=== PATIENT | male | born 1985 | race Caucasian/White ===

== ENCOUNTER 2017-05-08 03:04 | Emergency (ER) | payer BC ==
[2017-05-08] MEDS: NS 1,000 ML IV (04:15)
[2017-05-08] MEDS: LORazepam 2 MG/ML VIAL (J2060) IV (04:15)
[2017-05-08] MEDS ORDERED: LORazepam 2 MG/ML VIAL (J2060) As Ordered (04:21)
[2017-05-08 05:18] LABS: ANION GAP 11 MEQ/L (8-16); BLOOD UREA NITROGEN 7 MG/DL (7-18); CARBON DIOXIDE LEVEL 25 MEQ/L (21-32); CHLORIDE LEVEL 103 MEQ/L (98-107); CREATININE FOR GFR 1.03 MG/DL (0.70-1.30); ETHYL ALCOHOL (ETHANOL) 0.003 % (0.000-0.010); GLOMERULAR FILTRATION RATE > 60.0 (>60); GLUCOSE, FASTING 96 MG/DL (70-100); SODIUM LEVEL 139 MEQ/L (136-145)
[2017-05-08 05:22] LABS: BASO # 0.1 10^3/uL (0.0-0.2); BASO % 1.1 % (0.0-1.0); EOS # 0.1 10^3/uL (0.0-0.50); EOS % 2.1 % (0.0-3.0); HEMATOCRIT 39.8 % (42.0-52.0); HEMOGLOBIN 14.1 g/dl (14.0-18.0); IMMATURE GRANULOCYTE % 0.3 % (0-0); LYMPH # 0.8 10^3/uL (1.5-4.5); LYMPH % 12.9 % (24.0-44.0); MEAN CORPUSCULAR HEMOGLOBIN 33.1 pg (27.0-33.0); MEAN CORPUSCULAR HGB CONC 35.4 g/dl (32.0-36.5); MEAN CORPUSCULAR VOLUME 93.4 fl (80.0-96.0); MONO # 0.7 10^3/uL (0.0-0.8); MONO % 10.7 % (0.0-5.0); NEUTROPHILS # 4.8 10^3/uL (1.8-7.7); NEUTROPHILS % 72.9 % (36.0-66.0); PLATELET COUNT, AUTOMATED 180 10^3/uL (150-450); RED BLOOD COUNT 4.26 10^6/uL (4.30-6.10); RED CELL DISTRIBUTION WIDTH 12.1 % (11.5-14.5); WHITE BLOOD COUNT 6.5 10^3/uL (4.0-10.0)
[2017-05-08 05:23] LABS: VENOUS BASE EXCESS 0.3 (-2.0-2.0); VENOUS HCO3 24.4 MEQ/L (23.0-27.0); VENOUS O2 SATURATION 98.1 % (60.0-80.0); VENOUS PARTIAL PRESSURE CO2 37.6 mmHg (38.0-50.0); VENOUS PARTIAL PRESSURE O2 106.1 mmHg (30.0-50.0); VENOUS STANDARD HCO3 24.8 MEQ/L; VENOUS TOTAL CO2 25.6 MEQ/L (24.0-28.0)
[2017-05-08] MEDS: POTASSIUM CHLORIDE 10 MEQ SR TABLET PO (06:21)
== END 2017-05-08 06:25 | disposition home or self-care (01) ==
LOC: M ED 03:04
DX: F41.0 Panic disorder [episodic paroxysmal anxiety] (principal)
CPT/HCPCS: J2060

== ENCOUNTER 2018-08-05 12:16 | Inpatient (IN) | payer BC ==
[~2018-08-05] VITALS: Ht 185.4 cm; Wt 70.1 kg
[~2018-08-05 12:16] MED LIST: EXCETAB81 PO
[2018-08-05 14:04] LABS: HEMATOCRIT 43.6 % (42.0-52.0); HEMOGLOBIN 15.4 g/dl (13.5-17.5); MEAN CORPUSCULAR HEMOGLOBIN 34.7 pg (27.0-33.0); MEAN CORPUSCULAR HGB CONC 35.3 g/dl (32.0-36.5); MEAN CORPUSCULAR VOLUME 98.2 fl (80.0-96.0); PLATELET COUNT, AUTOMATED 227 10^3/uL (150-450); RED BLOOD COUNT 4.44 10^6/uL (4.30-6.10); WHITE BLOOD COUNT 6.9 10^3/uL (4.0-10.0)
[2018-08-05 14:18] LABS: AMPHETAMINES LEVEL URINE NEGATIVE (NEGATIVE); BARBITURATES URINE NEGATIVE (NEGATIVE); BENZODIAZEPINES URINE NEGATIVE (NEGATIVE); CANNABINOIDS URINE NEGATIVE (NEGATIVE); COCAINE METABOLITE URINE NEGATIVE (NEGATIVE); METHADONE URINE NEGATIVE (NEGATIVE); OPIATES URINE NEGATIVE (NEGATIVE); PHENCYCLIDINE URINE NEGATIVE (NEGATIVE)
[2018-08-05 14:49] LABS: ACETAMINOPHEN LEVEL < 2.0 UG/ML (10.0-30.0); ALBUMIN 2.8 GM/DL (3.2-5.2); ALT/SGPT 99 U/L (12-78); BILIRUBIN,DIRECT 0.2 MG/DL (0.0-0.2); BILIRUBIN,TOTAL 0.5 MG/DL (0.2-1.0); BLOOD UREA NITROGEN 3 MG/DL (7-18); CALCIUM LEVEL 7.5 MG/DL (8.5-10.1); CARBON DIOXIDE LEVEL 28 MEQ/L (21-32); CHLORIDE LEVEL 106 MEQ/L (98-107); CREATININE FOR GFR 0.67 MG/DL (0.70-1.30); ETHYL ALCOHOL (ETHANOL) 0.324 % (0.000-0.010); GLOMERULAR FILTRATION RATE > 60.0 (>60); GLUCOSE, FASTING 78 MG/DL (70-100); POTASSIUM SERUM 3.5 MEQ/L (3.5-5.1); SALICYLATE LEVEL < 1.7 MG/DL (5.0-30.0); SODIUM LEVEL 142 MEQ/L (136-145); TOTAL PROTEIN 6.2 GM/DL (6.4-8.2)
[2018-08-06] MEDS ORDERED: ACETAMINOPHEN TAB 650MG DOSE (2X325MG) PO PRN (13:45)
[2018-08-06] MEDS ORDERED: LORazepam 2 MG TAB PO PRN (13:45)
[2018-08-06] MEDS ORDERED: MAALOX 30 ML SUSP *UDC PO PRN (13:45)
[2018-08-06] MEDS ORDERED: MOM 30ML SUSPENSION UDC PO PRN (13:45)
[2018-08-06 14:56] VITALS: BP_SYST 127; BP_SYST 129; BP_DIAS 88; BP_DIAS 94
[2018-08-06] MEDS: FOLIC ACID 1 MG TAB PO SCH (15:16)
[2018-08-06] MEDS: MULTIVITAMINS/MINERALS THERAP 1 TAB PO SCH (15:16)
[2018-08-06] MEDS: THIAMINE 100 MG TAB PO SCH ×2 (15:16→21:37)
[2018-08-06 18:00] VITALS: BP 134/84
--- NOTE | 2018-08-06 19:06 | HPEPDOC ---
General Date of Admission August 06, 2018 at 13:35 Chief Complaint The patient is a 33-year-old male admitted with a reason for visit of Unspecified Depressive Disorder Etoh Disorder. History of Present Illness Patient is a 33-year-old male, without any medical history, admitted on account of severe depression with alcohol abuse. Patient states his problem has been building up for 3 years . His drinking has become progressively worse due to depression. On admit his blood alcohol level was 0.324. .. Liver enzymes were also elevated with AST 167 AST 99. He is admitted for further evaluation and management of severe depression with heavy alcohol abuse Home Medications No Active Prescriptions or Reported Meds Allergies Coded Allergies: No Known Allergies (Unverified , 05/08/17) Past Medical History Medical History Denies Surgical History Right Scaphoid repair Family History Father with alcohol abuse Social History Smokes one pack per week, drinks about token to be a day, denies polysubstance abuse A-FIB/CHADSVASC A-FIB History Current/History of A-Fib/PAF?: No Current Oral Anticoagulant The: No Review of Systems Other systems A 10 point pertinent ROS was completed, negative except as stated in the HPI Physical Examination Other physical findings GENERAL: NAD SKIN : Warm, dry intact HEENT: Atraumatic, normocephalic, PERRL, moist mucous membrane CV: Regular rate and rhythm, S1S2, no JVD, no edema, distal pulses + and palpable RESP: CTAB, no accessory muscle use noted ABDOMEN: BS+, non distended non tender MS: no joint deformities NEURO: Alert and oriented x 3, CN2-12 grossly intact PSYCH: no anxiety or agitation, appropriate mood and affect. Vital Signs Vital Signs Date Time Temp Pulse Resp B/P (MAP) Pulse Ox O2 Delivery O2 Flow Rate FiO2 08/06/18 14:56 79 127/88 08/06/18 14:56 98.5 18 99 08/06/18 14:24 Room Air Assessment/Plan Severe depression -Management by primary team Transaminitis -Denies abdominal discomfort -Elevated liver enzymes likely due to heavy alcohol abuse Alcohol abuse -Management by primary team Plan / VTE VTE Prophylaxis Ordered?: No VTE Exclusion Mechanical Proph: Low Risk for VTE RAFA LOUISE August 06, 2018 19:06
[2018-08-06] MEDS: traZODone 50 MG TAB PO PRN (21:37)
[2018-08-06 22:14] VITALS: BP 134/84
[2018-08-07 06:00] VITALS: BP 134/75
[2018-08-07 06:57] VITALS: BP 134/75
[2018-08-07] MEDS: THIAMINE 100 MG TAB PO SCH ×2 (09:12→20:23)
[2018-08-07] MEDS: MULTIVITAMINS/MINERALS THERAP 1 TAB PO SCH (09:12)
[2018-08-07] MEDS: FOLIC ACID 1 MG TAB PO SCH (09:12)
[2018-08-07] MEDS ORDERED: PROPRANOLOL 10 MG TAB PO PRN (12:00)
--- NOTE | 2018-08-07 12:06 | MHHPEPDOC ---
General Date Of Admission: August 06, 2018 Legal Status: 9.39 Chief Complaint "My brought me here because I'v been very depressed and I don't know what to do with my life" History of Present Illness HISTORY OF THE PRESENT ILLNESS: Patient is a 33 -year-old , male, who according to ED report: "Pt states that he has been depressed for the past year & his has wanted him to get help. Pt stated multiple times that he has been really depressed & sad, he has lost interest in activities that he used to like, he feels hopeless & helpless, & he has poor sleep & appetite. Pt denies both SI & HI. Pt states that he only eats when he has to work & eats just enough to keep his energy up during his shift. Pt works swing shift at [employer]. Pt states that he was in the [employer] with one deployment to [place] & one to [place]. He states he did not see any combat. He was honorably discharged three years ago. Main triggers are that his son lives in [place] & he has not spoken to him since December 2017 & cannot go visit him because of financial px's. Pt has no OP tx & has never been hospitalized for mental health. Pt states he has been drinking daily to cope & ANNETTE on arrival was 0.324. Pt denies drug use & tox screen was negative". Psychiatric Review of Systems Depression (2 or more weeks): depressed mood, anhedonia, insomnia/hypersomnia, feelings of excess/guilt (He regrets everything that has happened, his marriage going down, his job, losing his son), decreased energy, appetite changes, psychomotor changes, other (hopeless and helpless, sometimes, when he gets very upset) Ester (4 or more days of): denies Psychosis: denies PTSD: denies Anxiety: gen/non-specific anxiety, situational anxiety, stressor related anxiety, panic attacks (He had one before and he thought it was a heart attack, he was brought by his peers at work) Anxiety/ 6 months or more of: easily fatigued, irritability, muscle tension, sleep disturbance Past Psychiatric History Previous Psychiatric Diagnosis: Previous Psychiatric Admissions: Once at [facility], in March 2017, he came because he was feeling as if he was having a heart attack Suicide Attempts: Denies Psychiatric Follow-up: Denies Psychiatric medications: Denies. Past Medical History Medical Problems Denies Head Injury: No Seizures: No Hospitalizations: Yes Surgeries: Yes (On his right wrist, he broke the scaphoid) Family Medical/Psychiatric HX Medical Problems Denies Psychiatric Disorders: No Addiction: Yes (His biological father from alcoholism but he didn't grow up with him) Suicide Attemps/Completions: No Addiction History nicotine (1 pack/week), alcohol (6 beers/day (at least)), other (marijuana once or twice) Social History Childhood: Was born in [place] and was raised between [place] and [place]. His stepfather and his mother raised him, he met him when he was 4 and he left home at 20 for the . He has never gone back home for the Holidays. He has a half brother. He didn't like going to school. he didn't like math, he didn't like algebra. he was on Ritalin and he stopped taking it when he was on 8th grade. He left and went to [employer] and graduated with diploma and GED from there. Abuse/Trauma: Denies Current Living Situation: Lives in [place], at his 's house. her parents left over 2 years ago. Education: diploma and GED from the [employer] Employment: yes Social Support: his family Legal: Denies Marital: , his son in [place] and his stepson in here Mental Status Examination General Appearance: unkempt, disheveled, appears stated age, hospital s cubs/clothing Build: thin Demeanor: hostile, preoccupied Eye Contact: avoidant Activity: anxious Behavior: cooperative, resistant Speech: clear, spontaneous, reg/rate,rhythm,volume Mood: depressed, anxious, angry, irritable Affect: constricted, inappropriate, labile, congruent, anxious, hostile Thought Process: logical/linear Thought Content (Delusions): none reported Thought Content (Other): preoccupied, guilty, ideas of reference Thought Content (Aggressive): none reported Perception (Hallucinations): none reported Perception (Other): none reported Cognition (Impairment of): none reported Cognition(Intelligence Est.): average Oriented: Awake, Alert, Oriented times three Insight: poor Judgment: Poor Psychosis: Denies Diagnoses 1. major Depressive disorder, recurrent 2. Generalized Anxiety disorder 3. Alcohol use disorder Assessment The patient is very, very depressed. he is irritable, he has been sleep dep rived. he has insomnia, wakes up almost every 2-3 hours. he is always anxious, works under a lot of pressure. he is having marital problems, he resents his job for the stress it creates in him, he has been drinking excesively (6 beer/night at least, he says), his LFT's are elevated and in general, he has been neglecting his health. He is at a very high risk of suicide Initial Treatment Plan 1. Patient was admitted on a [9.39] status. 2. Complete history was obtained. 3. With patients permission, family will be contacted and database will be expanded. 4. Patients medication regimen will be reviewed and changed accordingly. 5. Patient will be provided with protected environment. 6. Patient will be treated with individual, group, and milieu therapies. 7. Patient will receive supportive psych-education. 8. Discharge planning will commence immediately. 9. Outpatient follow-up treatment will be strongly recommended. 10. The initial treatment plan will focus initially on: * Depression. * Anxiety * Risk for suicide. * Substance abuse. * Ineffective coping ESTIMATED LENGTH OF STAY: 5-7 DAYS. TIME SPENT COUNSELING AND COORDINATING INITIAL CARE: 60 minutes. Vital Signs Vital Signs Date Time Temp Pulse Resp B/P (MAP) Pulse Ox O2 Delivery O2 Flow Rate FiO2 08/07/18 08:19 Room Air 08/07/18 06:57 97.9 64 16 134/75 (94) 08/06/18 14:56 99 Medications No Active Prescriptions or Reported Meds Allergies Coded Allergies: No Known Allergies (Unverified , 05/08/17) ADOLFO BOWMAN MD August 07, 2018 11:53
[2018-08-07] MEDS: SERTRALINE HCL 50 MG TAB PO SCH (12:16)
[2018-08-07 18:35] VITALS: BP 144/81
[2018-08-07] MEDS: MIRTAZAPINE 15 MG TAB PO SCH (20:24)
[2018-08-07 21:06] VITALS: BP 144/81
[2018-08-08 06:16] VITALS: BP 149/84
[2018-08-08] MEDS: FOLIC ACID 1 MG TAB PO SCH (08:03)
[2018-08-08] MEDS: SERTRALINE HCL 50 MG TAB PO SCH (08:03)
[2018-08-08] MEDS: THIAMINE 100 MG TAB PO SCH ×2 (08:03→20:24)
[2018-08-08] MEDS: MULTIVITAMINS/MINERALS THERAP 1 TAB PO SCH (08:03)
--- NOTE | 2018-08-08 16:39 | MHIPNPDOC ---
[facility] Progress Note Progress Note DATE OF SERVICE: 08/08/18 HISTORY: Chief Complaint "My brought me here because I'v been very depressed and I don't know what to do with my life" History of Present Illness HISTORY OF THE PRESENT ILLNESS: Patient is a 33 -year-old , male, who according to ED report: "Pt states that he has been depressed for the past year & his has wanted him to get help. Pt stated multiple times that he has been really depressed & sad, he has lost interest in activities that he used to like, he feels hopeless & helpless, & he has poor sleep & appetite. Pt denies both SI & HI. Pt states that he only eats when he has to work & eats just enough to keep his energy up during his shift. Pt works swing shift at [employer]. Pt states that he was in the [employer] with one deployment to [place] & one to [place]. He states he did not see any combat. He was honorably discharged three years ago. Main triggers are that his son lives in [place] & he has not spoken to him since December 2017 & cannot go visit him because of financial px's. Pt has no OP tx & has never been hospitalized for mental health. Pt states he has been drinking daily to cope & ANNETTE on arrival was 0.324. Pt denies drug use & tox screen was negative". VITAL SIGNS: See below. NEW TEST RESULTS: See below CURRENT MEDICATIONS: See below. MENTAL STATUS EXAMINATION: Patient is a 33-year old male, who is alert, cooperative, dressed in personal clothes. Speech: Is spontaneous and fluent, normal rate, tone and volume. Language skills are good. Thought processes including: logical, linear. Thought content: He denies SI, denies Hi, denies AV hallucinations, denies thought delusions but admits to have ideas of reference, guilty thoughts, regrets, helplessness. Description of abnormal or psychotic thoughts: Please read above. Judgment: poor. Insight: poor. Orientation: x 3. Recent and remote memory: good. Attention span and concentration: fair. Language: Thai, well structured. Fund of knowledge: average. Mood: depressed, anxious. Affect: Congruent with mood. Not irritable as yesterday DIAGNOSES: 1. major Depressive disorder, recurrent 2. Generalized Anxiety disorder 3. Alcohol use disorder ASSESSMENT: The patient reports sleeping well last night. He had complained of waking up q2-3 hours during the night. The patient does not seem as irritable today as he was observed to be yesterday. He tells me that he saw somebody else going through ETOH withdrawals and this made him think of his ETOH abuse problem. MANAGEMENT PLAN: Will continue with the same treatment plan TIME SPENT: 15 minutes. Vital Signs Vital Signs Date Time Temp Pulse Resp B/P (MAP) Pulse Ox O2 Delivery O2 Flow Rate FiO2 08/08/18 08:26 Room Air 08/08/18 06:16 97.2 66 14 149/84 (105) 08/06/18 14:56 99 Current Medications Current Medications Acetaminophen (Tylenol Tab) 650 mg Q6HP PRN PO HEADACHE or DISCOMFORT; Start 08/06/18 at 13:45 Al Hydrox/Mg Hydrox/Simethicone (Mylanta) 30 ml Q4HP PRN PO HEARTB URN/INDIGESTION; Start 08/06/18 at 13:45 Folic Acid (Folic Acid) 1 mg DAILY PO Last administered on 08/08/18at 08:03; Start 08/06/18 at 09:00 Home Med (Med Rec Complete!) ASDIRECTED XX ; Start 08/06/18 at 08:30; Stop 08/06/18 at 08:30; Status DC Lorazepam (Ativan) 2 mg ASDIRECTED PRN PO SEE PROTOCOL; Start 08/06/18 at 13:45 Magnesium Hydroxide (Milk Of Magnesia) 30 ml DAILYPRN PRN PO CONSTIPATION; Start 08/06/18 at 13:45 Mirtazapine (Remeron) 30 mg QHS PO Last administered on 08/07/18at 20:24; Start 08/07/18 at 21:00 Multivitamins (Theragram-M) 1 tab DAILY PO Last administered on 08/08/18at 08:03; Start 08/06/18 at 09:00 Propranolol HCl (Inderal) 10 mg TID PRN PO ANXIETY/AGITATION; Start 08/07/18 at 12:00 Sertraline HCl (Zoloft) 50 mg QAM PO Last administered on 08/08/18at 08:03; Start 08/07/18 at 09:00 Thiamine HCl (Thiamine HCl) 100 mg BID PO Last administered on 08/08/18at 08:03; Start 08/06/18 at 14:00; Stop 08/09/18 at 13:59 Trazodone HCl (Desyrel) 50 mg QHSP PRN PO INSOMNIA Last administered on 08/06/18at 21:37; Start 08/06/18 at 13:45 Allergies Coded Allergies: No Known Allergies (Unverified , 05/08/17) ADOLFO BOWMAN MD August 08, 2018 16:33
[2018-08-08 18:00] VITALS: BP 124/85
[2018-08-08] MEDS: MIRTAZAPINE 15 MG TAB PO SCH (20:24)
[2018-08-09 06:42] VITALS: BP 119/78
[2018-08-09 08:20] VITALS: BP 119/78
[2018-08-09] MEDS: MULTIVITAMINS/MINERALS THERAP 1 TAB PO SCH (08:29)
[2018-08-09] MEDS: FOLIC ACID 1 MG TAB PO SCH (08:29)
[2018-08-09] MEDS: SERTRALINE HCL 50 MG TAB PO SCH (08:29)
[2018-08-09] MEDS: THIAMINE 100 MG TAB PO SCH (08:29)
--- NOTE | 2018-08-09 17:15 | MHIPNPDOC ---
[facility] Progress Note Progress Note DATE OF SERVICE: 08/09/18 HISTORY: Chief Complaint "My brought me here because I'v been very depressed and I don't know what to do with my life" History of Present Illness HISTORY OF THE PRESENT ILLNESS: Patient is a 33 -year-old , male, who according to ED report: "Pt states that he has been depressed for the past year & his has wanted him to get help. Pt stated multiple times that he has been really depressed & sad, he has lost interest in activities that he used to like, he feels hopeless & helpless, & he has poor sleep & appetite. Pt denies both SI & HI. Pt states that he only eats when he has to work & eats just enough to keep his energy up during his shift. Pt works swing shift at [employer]. Pt states that he was in the [employer] with one deployment to [place] & one to [place]. He states he did not see any combat. He was honorably discharged three years ago. Main triggers are that his son lives in [place] & he has not spoken to him since December 2017 & cannot go visit him because of financial px's. Pt has no OP tx & has never been hospitalized for mental health. Pt states he has been drinking daily to cope & ANNETTE on arrival was 0.324. Pt denies drug use & tox screen was negative". VITAL SIGNS: See below. NEW TEST RESULTS: See below CURRENT MEDICATIONS: See below. MENTAL STATUS EXAMINATION: Patient is a 33-year old male, who is alert, cooperative, dressed in personal clothes. Speech: Is spontaneous and fluent, normal rate, tone and volume. Language skills are good. Thought processes including: logical, linear. Thought content: He denies SI, denies Hi, denies AV hallucinations, denies thought delusions but admits to have ideas of reference, guilty thoughts, regrets, helplessness and angry thughts about being at [facility] Description of abnormal or psychotic thoughts: Please read above. Judgment: poor. Insight: poor. Orientation: x 3. Recent and remote memory: good. Attention span and concentration: fair. Language: Kinyarwanda, well structured. Fund of knowledge: average. Mood: depressed, anxious., irritable Affect: Congruent with mood. DIAGNOSES: 1. major Depressive disorder, recurrent 2. Generalized Anxiety disorder 3. Alcohol use disorder ASSESSMENT: The patient reports that he slept better last night although he still was able to go back to sleep. He says that he is irritable because "I'm here". Patient has a severe alcohol us disorder and he might be feeling as if he needs to go and have a drink. this bid writer explained about the rol that alcohol plays in depression and why it is important for him to quit drinking. MANAGEMENT PLAN: Increase Zoloft to 75 mgs TIME SPENT: 15 minutes. Vital Signs Vital Signs Date Time Temp Pulse Resp B/P (MAP) Pulse Ox O2 Delivery O2 Flow Rate FiO2 08/09/18 08:20 87 119/78 08/09/18 06:42 97.6 16 08/08/18 08:26 Room Air 08/06/18 14:56 99 Current Medications Current Medications Acetaminophen (Tylenol Tab) 650 mg Q6HP PRN PO HEADACHE or DISCOMFORT; Start 08/06/18 at 13:45 Al Hydrox/Mg Hydrox/Simethicone (Mylanta) 30 ml Q4HP PRN PO HEARTBURN/INDIGESTION; Start 08/06/18 at 13:45 Folic Acid (Folic Acid) 1 mg DAILY PO Last administered on 08/09/18at 08:29; Start 08/06/18 at 09:00 Home Med (Med Rec Complete!) ASDIRECTED XX ; Start 08/06/18 at 08:30; Stop 08/06/18 at 08:30; Status DC Lorazepam (Ativan) 2 mg ASDIRECTED PRN PO SEE PROTOCOL; Start 08/06/18 at 13:45 Magnesium Hydroxide (Milk Of Magnesia) 30 ml DAILYPRN PRN PO CONSTIPATION; Start 08/06/18 at 13:45 Mirtazapine (Remeron) 30 mg QHS PO Last administered on 08/08/18at 20:24; Start 08/07/18 at 21:00 Multivitamins (Theragram-M) 1 tab DAILY PO Last administered on 08/09/18at 08:29; Start 08/06/18 at 09:00 Propranolol HCl (Inderal) 10 mg TID PRN PO ANXIETY/AGITATION; Start 08/07/18 at 12:00 Sertraline HCl (Zoloft) 50 mg QAM PO Last administered on 08/09/18at 08:29; Start 08/07/18 at 09:00 Thiamine HCl (Thiamine HCl) 100 mg BID PO Last administered on 08/09/18at 08:29; Start 08/06/18 at 14:00; Stop 08/09/18 at 13:59; Status DC Trazodone HCl (Desyrel) 50 mg QHSP PRN PO INSOMNIA Last administered on 08/06/18at 21:37; Start 08/06/18 at 13:45 Allergies Coded Allergies: No Known Allergies (Unverified , 05/08/17) ADOLFO BOWMAN MD August 09, 2018 17:15
[2018-08-09 18:00] VITALS: BP 120/69
[2018-08-09] MEDS: MIRTAZAPINE 15 MG TAB PO SCH (20:50)
[2018-08-09 21:33] VITALS: BP 120/69
[2018-08-10 06:38] VITALS: BP 116/83
[2018-08-10] MEDS: MULTIVITAMINS/MINERALS THERAP 1 TAB PO SCH (08:12)
[2018-08-10] MEDS: SERTRALINE HCL 25 MG TABLET PO SCH (08:12)
[2018-08-10] MEDS: FOLIC ACID 1 MG TAB PO SCH (08:12)
[2018-08-10 08:13] LABS: ALBUMIN 3.2 GM/DL (3.2-5.2); ALT/SGPT 68 U/L (12-78); BILIRUBIN,TOTAL 0.5 MG/DL (0.2-1.0); BLOOD UREA NITROGEN 5 MG/DL (7-18); CALCIUM LEVEL 8.4 MG/DL (8.5-10.1); CARBON DIOXIDE LEVEL 29 MEQ/L (21-32); CHLORIDE LEVEL 105 MEQ/L (98-107); CHOLESTEROL LEVEL 197 MG/DL (<200); CREATININE FOR GFR 0.74 MG/DL (0.70-1.30); GLOMERULAR FILTRATION RATE > 60.0 (>60); GLUCOSE, FASTING 100 MG/DL (70-100); HDL CHOLESTEROL 65 MG/DL (>40); LDL CHOLESTEROL 113 MG/DL (<100); NON-HDL-C 132 MG/DL; POTASSIUM SERUM 3.9 MEQ/L (3.5-5.1); SODIUM LEVEL 140 MEQ/L (136-145); TOTAL PROTEIN 6.4 GM/DL (6.4-8.2); TRIGLYCERIDES LEVEL 95 MG/DL (<150)
[2018-08-10 12:07] VITALS: BP 144/95
[2018-08-10 18:03] VITALS: BP 117/75
[2018-08-10] MEDS: MIRTAZAPINE 15 MG TAB PO SCH (20:35)
[2018-08-11 06:30] VITALS: BP 117/61
[2018-08-11] MEDS: FOLIC ACID 1 MG TAB PO SCH (08:18)
[2018-08-11] MEDS: MULTIVITAMINS/MINERALS THERAP 1 TAB PO SCH (08:18)
[2018-08-11] MEDS: SERTRALINE HCL 25 MG TABLET PO SCH (08:18)
[2018-08-11 17:20] VITALS: BP 125/77
[2018-08-11] MEDS: traZODone 50 MG TAB PO PRN (20:26)
[2018-08-11] MEDS: MIRTAZAPINE 15 MG TAB PO SCH (20:26)
[2018-08-12 06:15] VITALS: BP 120/63
[2018-08-12] MEDS: SERTRALINE HCL 25 MG TABLET PO SCH (08:55)
[2018-08-12] MEDS: MULTIVITAMINS/MINERALS THERAP 1 TAB PO SCH (08:55)
[2018-08-12] MEDS: FOLIC ACID 1 MG TAB PO SCH (08:55)
[2018-08-12] MEDS ORDERED: REME15TA PO (12:01)
[2018-08-12] MEDS ORDERED: SERT25TA88 PO (12:01)
[2018-08-12] MEDS ORDERED: PROP10TA56 PO (12:04)
[2018-08-12] MEDS ORDERED: VITMTA PO (12:04)
[2018-08-12] MEDS ORDERED: FOLI1TAB11 PO (12:04)
== END 2018-08-12 13:30 | disposition home or self-care (01) | DRG 751 ==
LOC: M ED 12:16 → M ED INP 08-06 13:35 → M PSY 08-06 14:40
PROVIDERS: ADMIT Psychiatry & Neurology Psychiatry; ATTEND Psychiatry & Neurology Psychiatry
DX: F33.9 Major depressive disorder, recurrent, unspecified (principal); F41.1 Generalized anxiety disorder; F10.10 Alcohol abuse, uncomplicated; Z79.899 Other long term (current) drug therapy; F17.200 Nicotine dependence, unspecified, uncomplicated

== ENCOUNTER 2021-11-13 07:25 | Emergency (ER) | payer BC ==
[~2021-11-13] VITALS: Ht 185.4 cm; Wt 72.9 kg
[~2021-11-13 07:25] MED LIST changes: +FOLI1TAB11 PO; +MIRT-62 PO; +PROP10TA56 PO; +SERT25TA21 PO; +VITMTA PO
[2021-11-13] MEDS ORDERED: NS 1,000 ML IV ONE ×2 (07:40→07:45)
[2021-11-13 07:53] LABS: BASO # 0.2 10^3/uL (0.0-0.2); EOS # 0.3 10^3/uL (0.0-0.5); EOS % 1.8 % (0.0-3.0); HEMATOCRIT 51.4 % (42.0-52.0); HEMOGLOBIN 17.1 g/dl (13.5-17.5); LYMPH # 2.6 10^3/uL (1.5-5.0); LYMPH % 15.1 % (24.0-44.0); MEAN CORPUSCULAR HEMOGLOBIN 30.8 pg (27.0-33.0); MEAN CORPUSCULAR HGB CONC 33.3 g/dl (32.0-36.5); MEAN CORPUSCULAR VOLUME 92.6 fl (80.0-96.0); MONO % 5.6 % (2.0-8.0); NEUTROPHILS # 13.2 10^3/uL (1.5-8.5); NEUTROPHILS % 75.9 % (36.0-66.0); PLATELET COUNT, AUTOMATED 255 10^3/uL (150-450); RED BLOOD COUNT 5.55 10^6/uL (4.30-6.10); WHITE BLOOD COUNT 17.4 10^3/uL (4.0-10.0)
[2021-11-13 08:45] LABS: ACETAMINOPHEN LEVEL < 2.0 UG/ML (10.0-30.0); ALBUMIN 4.4 GM/DL (3.2-5.2); ALT/SGPT 23 U/L (12-78); BILIRUBIN,DIRECT 0.1 MG/DL (0.0-0.2); BILIRUBIN,TOTAL 0.5 MG/DL (0.2-1.0); BLOOD UREA NITROGEN 10 MG/DL (7-18); CALCIUM LEVEL 9.1 MG/DL (8.5-10.1); CARBON DIOXIDE LEVEL 24 MEQ/L (21-32); CHLORIDE LEVEL 104 MEQ/L (98-107); CREATININE FOR GFR 0.93 MG/DL (0.70-1.30); ETHYL ALCOHOL (ETHANOL) 0.043 % (0.000-0.010); FREE T4 1.02 NG/DL (0.76-1.46); GLOMERULAR FILTRATION RATE > 60.0 (>60); GLUCOSE, FASTING 47 MG/DL (70-100); LIPASE 83 U/L (73-393); POTASSIUM SERUM 2.9 MEQ/L (3.5-5.1); SODIUM LEVEL 140 MEQ/L (136-145); TOTAL PROTEIN 7.5 GM/DL (6.4-8.2)
[2021-11-13] MEDS ORDERED: POTASSIUM CHLORIDE 10MEQ SR TABLET PO ONE (08:45)
[2021-11-13] MEDS ORDERED: DEXTROSE 50% 50 ML SYRINGE IV STA (08:45)
[2021-11-13] MEDS ORDERED: DEXTROSE 50% 50 ML SYRINGE As Ordered ONE (08:46)
[2021-11-13 09:00] LABS: MAGNESIUM LEVEL 2.1 MG/DL (1.8-2.4)
[2021-11-13] MEDS ORDERED: KCL 10MEQ/100ML SWI (KRUN) 10 MEQ in IV 1 EA IV ONE (09:00)
[2021-11-13 09:11] LABS: CK-MB VALUE MASS < 1.0 NG/ML (<3.6); CPK CREATINE PHOSPHOKINASE 59 U/L (39-308); MB/CK RELATIVE INDEX 1.69 (< OR =4)
[2021-11-13 09:12] LABS: RSV AMPLIFICATION NEGATIVE (NEGATIVE)
[2021-11-13 10:09] LABS: AMPHETAMINES LEVEL URINE NEGATIVE (NEGATIVE); BARBITURATES URINE NEGATIVE (NEGATIVE); BENZODIAZEPINES URINE NEGATIVE (NEGATIVE); CANNABINOIDS URINE POSITIVE (NEGATIVE); COCAINE METABOLITE URINE NEGATIVE (NEGATIVE); METHADONE URINE NEGATIVE (NEGATIVE); OPIATES URINE NEGATIVE (NEGATIVE); PHENCYCLIDINE URINE NEGATIVE (NEGATIVE)
[2021-11-13 10:15] LABS: BASO # 0.1 10^3/uL (0.0-0.2); BASO % 0.5 % (0.0-1.0); EOS % 0.2 % (0.0-3.0); HEMATOCRIT 42.9 % (42.0-52.0); LYMPH # 0.7 10^3/uL (1.5-5.0); LYMPH % 3.9 % (24.0-44.0); MEAN CORPUSCULAR HEMOGLOBIN 30.9 pg (27.0-33.0); MEAN CORPUSCULAR HGB CONC 33.1 g/dl (32.0-36.5); MEAN CORPUSCULAR VOLUME 93.5 fl (80.0-96.0); MONO # 0.7 10^3/uL (0.0-0.8); MONO % 4.1 % (2.0-8.0); NEUTROPHILS # 15.7 10^3/uL (1.5-8.5); NEUTROPHILS % 90.7 % (36.0-66.0); PLATELET COUNT, AUTOMATED 161 10^3/uL (150-450); RED BLOOD COUNT 4.59 10^6/uL (4.30-6.10); WHITE BLOOD COUNT 17.3 10^3/uL (4.0-10.0)
[2021-11-13 10:25] LABS: HEMOGLOBIN 14.2 g/dl (13.5-17.5)
[2021-11-13] MEDS ORDERED: K-TA10TA2 PO (11:33)
[2021-11-13 11:41] VITALS: BP 107/70
== END 2021-11-13 12:07 | disposition home or self-care (01) ==
LOC: M ED 07:25
DX: F41.1 Generalized anxiety disorder (principal); F15.10 Other stimulant abuse, uncomplicated; E87.6 Hypokalemia; F17.200 Nicotine dependence, unspecified, uncomplicated